=== PATIENT | female | born 1960 | race Caucasian/White ===

== ENCOUNTER → 2019-12-19 | Outpatient (CLI) | payer BC | LOC: SJCVCIMAG 10:41 | DX: M79.604 Pain in right leg (principal); M79.605 Pain in left leg; R22.43 Localized swelling, mass and lump, lower limb, bilateral ==

== ENCOUNTER → 2020-01-02 | Outpatient (CLI) | payer BC | LOC: HYPER 11:35 | DX: I89.0 Lymphedema, not elsewhere classified (principal); Q79.60 Ehlers-Danlos syndrome, unspecified; R60.0 Localized edema; M79.7 Fibromyalgia; L84 Corns and callosities; I10 Essential (primary) hypertension; J45.909 Unspecified asthma, uncomplicated; G47.30 Sleep apnea, unspecified; F41.9 Anxiety disorder, unspecified ==